=== PATIENT | male | born 1985 | race Caucasian/White ===

== ENCOUNTER 2021-12-23 19:06 | Emergency (ER) | payer OTHER ==
[~2021-12-23] VITALS: Ht 193 cm; Wt 136.1 kg
[2021-12-23] MEDS ORDERED: IV NORMAL SALINE 1000 ML BAG IV ONE (19:30)
[2021-12-23 19:41] LABS: HEMATOCRIT 50.7 % (36.7-47.1); MEAN CORPUSCULAR HEMOGLOBIN 31.1 uug (23.8-33.4); MEAN CORPUSCULAR VOLUME 91.2 fL (73.0-96.2); PLATELET COUNT (AUTO) 303 K/uL (152-348)
--- NOTE | 2021-12-23 19:50 | NUR ---
COVID swab done and sent to lab.
[2021-12-23 19:56] LABS: ALANINE AMINOTRANSFERASE 153 U/L (16-63); ALKALINE PHOSPHATASE 95 U/L (50-136); ASPARTATE AMINOTRANSFERASE 112 U/L (15-37); BILIRUBIN,DIRECT 0.2 mg/dL (0.0-0.2); BILIRUBIN,TOTAL 0.5 mg/dL (0.2-1.0); CARBON DIOXIDE 28 mmol/L (21-32); CHLORIDE 101 mmol/L (98-107); CREATININE 0.7 mg/dL (0.6-1.3); GLUCOSE 98 mg/dL (74-106); POTASSIUM 3.9 mmol/L (3.5-5.1); TOTAL PROTEIN, SERUM 8.6 g/dL (6.4-8.2); UREA NITROGEN, BLOOD 4 mg/dL (7-18)
[2021-12-23 20:12] LABS: ETHANOL 436 MG/DL (0-0)
[2021-12-23] MEDS ORDERED: ONDANSETRON 4 MG/2 ML VIAL IV ONE (20:45)
[2021-12-23] MEDS ORDERED: KETAMINE HCL 500 MG/10 ML INJ ONE ×3 (20:51→23:23)
[2021-12-23] MEDS ORDERED: ONDANSETRON 4 MG/2 ML VIAL ONE (21:02)
[2021-12-23] MEDS ORDERED: HALOPERIDOL LACTATE 5 MG/1 ML VIAL ONE (21:54)
[2021-12-23] MEDS ORDERED: IV NORMAL SALINE 500 ML IV ONE (22:15)
[2021-12-23] MEDS ORDERED: HALOPERIDOL LACTATE 5 MG/1 ML VIAL IM ONE (22:15)
[2021-12-23] MEDS ORDERED: NICOTINE POLACRILEX 4 MG GUM-PK OF TEN BC ONE (22:30)
[2021-12-23] MEDS ORDERED: KETAMINE HCL 500 MG/10 ML INJ IV ONE (22:30)
[2021-12-23 22:41] LABS: *BILIRUBIN,URIN NEGATIVE (NEGATIVE); *BLOOD, URINE NEGATIVE (NEGATIVE); *CLARITY,URINE CLEAR (CLEAR); *COLOR,URINE YELLOW (YELLOW); *KETONES,URINE 1+ (NEGATIVE); *UROBILINOGEN,URINE 0.2 E.U./dl (NORMAL); LEUKOCYTE ESTERASE ,URINE NEGATIVE (NEGATIVE); NITRITE, URINE NEGATIVE (NEGATIVE); PH,URINE 6.5 (5.0-8.0); UGLUCOSE NEGATIVE (NEGATIVE)
[2021-12-23 22:49] LABS: BACTERIA,URINE NONE SEEN /HPF (NONE SEEN); RBC,URINE NONE SEEN /HPF (0-3); SQUAMOUS EPITHELIAL CELL,UR NONE SEEN /HPF (NONE SEEN); WBC,URINE NONE SEEN /HPF (0-3)
[2021-12-23 22:54] LABS: *AMPHETAMINE, URINE NEGATIVE (NEGATIVE); *CANNABINOID, URINE NEGATIVE (NEGATIVE); *COCCAINE, URINE NEGATIVE (NEGATIVE); *OPIATE, URINE NEGATIVE (NEGATIVE); *PHENCYCLIDINE SCREEN,URINE NEGATIVE (NEGATIVE)
[2021-12-23] MEDS ORDERED: KETAMINE HCL 500 MG/10 ML INJ IM ONE ×2 (23:15→23:30)
--- NOTE | 2021-12-24 | NUR ---
Found patient on the floor, Pt was found, sitting on edge of bed prior, MD made aware, assisted patient back to bed with security and [employer], patient confused asking where he is, placed patient on a C-collar and CT ordered.
[2021-12-24] MEDS ORDERED: OLANZAPINE 10 MG VIAL IM ONE ×2 (00:15→00:52)
--- NOTE | 2021-12-24 08:27 | NUR ---
PT AWAKE AND ORIENTED; TOLERATED BREAQKFAST WELL.DISCHARGE INSTRUCTIONS RENDERE PER MD ORDER.
[2021-12-24 08:31] VITALS: BP 134/68
--- NOTE | 2021-12-24 08:38 | NUR ---
PT WAS D/C'D TO HOME BY DR HAIDER. D/C INSTRUCTIONS GIVEN TO THE PT BY DR HAIDER.
== END 2021-12-24 09:01 | disposition home or self-care (01) ==
LOC: ER 19:06
DX: F10.229 Alcohol dependence with intoxication, unspecified (principal); Y90.8 Blood alcohol level of 240 mg/100 ml or more; R00.0 Tachycardia, unspecified; E11.9 Type 2 diabetes mellitus without complications; D72.829 Elevated white blood cell count, unspecified; F17.210 Nicotine dependence, cigarettes, uncomplicated; Z20.822 Contact with and (suspected) exposure to COVID-19
CPT/HCPCS: 80076; 80048; 81001; 82962 ×2; 85025; 87426; 84484 ×3; 36415; 93005; 71045; 70450 ×2; 99285; 96361 ×2; 96374; 96372 ×2; 80320; 80307; 72125; J1630; J3490 ×3; J2405; J7040 ×2; A4663; G0480; J2358